=== PATIENT | female | born 1995 | race Caucasian/White ===

== ENCOUNTER 2019-08-17 09:22 | Outpatient (CLI) | payer BC, SELFPAY ==
--- NOTE | ~2019-08-17 | US_ITS ---
EXAMINATION: US OB <=14 wk fetus w TV DATE: 08/17/2019 10:27 INDICATION: Threatened . TECHNIQUE: Real-time transabdominal and transvaginal obstetric ultrasound. FINDINGS: No prior studies for comparison. The uterus measures 5.9 x 3.7 x 5.5 cm. There is an intrauterine gestational sac, with pole rick ntified. No intrauterine gestational sac is identified. No evidence for pole. Ovaries are withi n normal limits. Right ovary measures 1.8 x 2.2 x 1.9 cm. Left ovary measures 0.9 x 2 x 1.9 cm. There is a 1.4 cm right ovarian cyst. IMPRESSION: 1. No evidence for intrauterine . If there is a positive test, considerations incl ude very early intrauterine , failed and ectopic . Recommend follow-up wi th serial quantitative beta-hCG levels and ultrasound as clinically indicated. Reviewed, dictated and finalized at location A. IMPRESSION: 1. No evidence for intrauterine . If there is a positive blanca t, considerations include very early intrauterine , failed a nd ectopic . Recommend follow-up with serial quantitative beta-hCG lev els and ultrasound as clinically indicated.
[2019-08-17 11:08] LABS: Beta HCG Quantitative 7.19 mIU/ML
== END 2019-08-17 09:23 | disposition home or self-care (01) ==
PROVIDERS: Visit Provider Obstetrics & Gynecology
DX: O20.0 Threatened abortion (principal); Z3A.00 Weeks of gestation of pregnancy not specified
CPT/HCPCS: 36415; 76801; 76817; 84702

== ENCOUNTER 2019-08-19 10:53 | Emergency (ER) | payer BC, SELFPAY ==
--- NOTE | ~2019-08-19 | US_ITS ---
EXAMINATION: US pelvic complete w TV DATE: 08/19/2019 13:19 INDICATION: Vaginal bleeding during first trimester TECHNIQUE: Multiple transabdominal and endovaginal sonographic images of the pelvis were obtained. COMPARISON: 08/17/2019 FINDINGS: The uterus measures 8.2 x 4.1 x 5.7 cm. No intrauterine gestational sac is identified. The endometrial complex measures 9 mm. The ovaries are not visualized however no adnexal abnormality is s een. There is trace free fluid in the pelvis. IMPRESSION: 1. of unknown location. Although no intrauterine gestational sac is seen, this may be due t o early gestation. If the patient is clinically stable, recommend followup with serial beta-hCG and u ltrasound. Reviewed, dictated and finalized at location B. IMPRESSION: 1. of unknown location. Although no intrauterine gestational sac is s een, this may be due to early gestation. If the patient is clinically stable, r ecommend followup with serial beta-hCG and ultrasound.
[2019-08-19 11:09] VITALS: BP 130/97; PULSE 92; RESP 22; TEMP 36.6; O2SAT 99
[2019-08-19 11:51] LABS: Basophils Percent Auto 0.5 % (0.2-1.2); Eosinophils Absolute Auto 0.1 K/mm3 (0-0.3); Eosinophils Percent Auto 1.8 % (0-4.4); Hematocrit 45.2 % (37.0-47.0); Hemoglobin 14.9 g/dL (12.0-15.0); Immature Granulocyte Absolute 0.02 K/mm3 (0.00-0.031); Immature Granulocyte Percent A 0.3 % (0-0.5); Lymphocytes Absolute Auto 1.76 K/mm3 (0.9-3.2); Lymphocytes Percent Auto 26.6 % (18.3-44.2); Mean Corpuscular Hemoglobin 30.3 pg (26-34); Mean Corpuscular Volume 91.9 fl (80-100); Mean Platelet Volume 11.4 fl (7.4-10.4); Monocytes Absolute Auto 0.5 K/mm3 (0.1-0.6); Monocytes Percent Auto 8.2 % (2.6-8.5); Neutrophils Absolute Auto 4.2 K/mm3 (1.3-6.7); Neutrophils Percent Auto 62.6 % (45.5-73.1); Platelet Count Result 264 k/mm3 (150-375); Red Blood Count 4.92 M/mm3 (4.2-5.4); Red Cell Distribution Width 13.1 % (11.5-14.5); White Blood Count 6.6 K/mm3 (4.5-10.0)
[2019-08-19 11:59] LABS: Add Urine Microscopic? YES; Appearance Urine Clear (Clear); Bilirubin Urine Negative (Negative); Blood Urine 3+ (Negative); Color Urine Yellow (Yellow); Glucose Urine UA Negative (Negative); Ketones Urine Negative (Negative); Leukocyte Esterase Ur Negative LEU/UL (Negative); Mucus Urine Heavy /lpf; Nitrate Urine Negative (Negative); Protein Urine 1+ mg/dL (Negative); RBC Urine >75 /hpf (0-2); Specific Grav Ur 1.019 (1.001-1.035); Squamous Epithelial Cell Urine Many /hpf (Few); Urobilinogen Urine Negative mg/dL (<2.0)
[2019-08-19 12:05] LABS: Alanine Aminotransferase 19 U/L (4-35); Albumin Level 4.9 g/dL (3.5-5.1); Alkaline Phosphatase 87 U/L (38-126); Aspartate Amino Transferase 30 U/L (14-36); Bilirubin,Total 0.6 mg/dL (0.2-1.3); Blood Urea Nitrogen 9 mg/dL (7-17); Calcium 8.9 mg/dL (8.4-10.2); Carbon Dioxide 22 mmol/L (22-30); Chloride 105 mmol/L (98-107); Estimated CRCL calculation 90 ml/min; Estimated Glomerular Filt Rate > 60; Glucose 89 mg/dL (65-105); Potassium 4.1 mmol/L (3.4-5.0); Sodium 140 mmol/L (137-145)
[2019-08-19 12:21] LABS: Beta HCG Quantitative < 2.39 mIU/ML
[2019-08-19 12:45] VITALS: BP 118/77; PULSE 77; RESP 14; O2SAT 99
--- NOTE | 2019-08-19 13:48 | ED.GENADULT ---
HPI - General Adult General Chief complaint: [employer] Stated complaint: vag bleeding Time Seen by Provider: 08/19/19 11:05 Source: patient Mode of arrival: ambulatory Limitations: no limitations History of Present Illness HPI narrative: Patient presents with chief complaint of variations in amount of vaginal bleeding that began Friday last night. Patient reports she has also noticed some cramping. Patient states that she has had 5 pregnancies and 3 miscarriages. Patient states that she spoke with her PROCESS [employer]NAG[employer] Dr. Carrasquillo on Friday and had a beta hCG (7.9) and ultrasound performed. She states she has noticed some blood clots in the mornings after waking and getting up. Patient states her bleeding is very light today. 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 She reports she was instructed to come to the emergency department for further evaluation. Related Data Allergies Allergy/AdvReac Type Severity Reaction Status Date / Time latex Allergy Mild HIVES Verified 01/24/17 10:17 Review of Systems Review of Systems: Narrative: CONSTITUTIONAL: Denies fever, chills, or sweats. EYES: Denies visual changes, redness, or discharge. ENT: Denies rhinorrhea, congestion, sore throat, or otalgia. CARDIOVASCULAR: Denies chest pain, palpitations, or edema. RESPIRATORY: Denies cough or dyspnea. GASTROINTESTINAL: Denies abdominal pain, nausea, vomiting, or diarrhea. GENITOURINARY: Reports vaginal bleeding and cramping. Denies dysuria or hematuria. SKIN: Denies rash or itching. MUSCULOSKELETAL: Denies back pain, joint pain, or myalgia. NEUROLOGIC: Denies headache, numbness, dizziness, or weakness. PSYCHIATRIC: Denies anxiety or depression. Exam Narrative: Exam Narrative: GENERAL: Well-appearing, well-nourished, and in no acute distress. Patient is texting on her phone and does not appear to be in discomfort. HEAD: Normocephalic, atraumatic. EYES: PERRLA and EOMI. ENT: Nares clear, no rhinorrhea or epistaxis. Mucous membranes moist. Oropharynx without tonsillar hypertrophy exudate or other lesions. Bilateral TMs pearly arias nonbulging NECK: Supple. No adenopathy or masses. CHEST: Clear to auscultation. No respiratory distress. No wheezes rales or rhonchi HEART: Regular rate and rhythm. No murmur heard. ABDOMEN: Soft, diffusely tender suprapubically., nondistended, normal active bowel sounds. : Declined. EXTREMITIES: Normal range of motion. No edema. SKIN: Warm, dry, no rash. NEURO: No focal deficits. Alert and oriented x3. PSYCH: Normal mood and affect. Course Vital Signs Vital signs: Vital Signs Temperature 97.8 F 08/19/19 11:09 Pulse Rate 92 08/19/19 11:09 Respiratory Rate 22 H 08/19/19 11:09 Blood Pressure 130/97 H 08/19/19 11:09 Pulse Oximetry 99 08/19/19 11:09 Temperature 97.8 F 08/19/19 11:09 Pulse Rate 77 08/19/19 12:45 Respiratory Rate 14 08/19/19 12:45 Blood Pressure 118/77 08/19/19 12:45 Pulse Oximetry 99 08/19/19 12:45 Medical Decision Making MDM Narrative Medical decision making narrative: Consult with Dr. Sutton who is on-call for Dr. Carrasquillo [employer]. Discussed with her patient is nondetectable hCG level. She was still like to have ultrasound repeated to make sure there is not a large amount of free fluid in the pelvis. Consult with Dr Sutton and discussed US reading. She states to discharge patient home. Have her take tylenol and ibuprofen and follow up in the office. Vital Signs Vital Signs: Vital Signs Temperature 97.8 F 08/19/19 11:09 Pulse Rate 92 08/19/19 11:09 Respiratory Rate 22 H 08/19/19 11:09 Blood Pressure 130/97 H 08/19/19 11:09 Pulse Oximetry 99 08/19/19 11:09 Temperature 97.8 F 08/19/19 11:09 Pulse Rate 77 08/19/19 12:45 Respiratory Rate 14 08/19/19 12:45 Blood Pressure 118/77 03
[2019-08-19 14:26] VITALS: BP 118/77; PULSE 91; RESP 16; O2SAT 97
== END 2019-08-19 14:29 | disposition home or self-care (01) ==
PROVIDERS: Physician Assistant; Emergency Provider Emergency Medicine
DX: N93.9 Abnormal uterine and vaginal bleeding, unspecified (principal)
CPT/HCPCS: 36415; 76830; 76856; 80053; 81001; 84702; 85025; 99284